=== PATIENT | male | born 1995 | race Caucasian/White ===

== ENCOUNTER 2020-11-06 19:02 | Emergency (ER) | payer SELFPAY ==
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
[2020-11-06 19:07] VITALS: BP 158/80; PULSE 58; RESP 16; TEMP 36.9; O2SAT 98; BMI 25.1
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
[2020-11-06 22:43] VITALS: BP 116/75; PULSE 55; RESP 17; O2SAT 97
[2020-11-06] MEDS: Diphth,Pertus(ACell),Tet Adult 0.5 ML SYRINGE IM (22:48)
== END 2020-11-06 23:29 | disposition home or self-care (01) ==
PROVIDERS: Emergency Provider Emergency Medicine; PCP Internal Medicine
DX: S06.0X0A Concussion without loss of consciousness, initial encounter (principal); S00.511A Abrasion of lip, initial encounter; Y04.2XXA Assault by strike against or bumped into by another person, initial encounter; Y93.9 Activity, unspecified; Y92.9 Unspecified place or not applicable; Y99.9 Unspecified external cause status
CPT/HCPCS: 70450; 70486; 90471; 90715; 99284

== ENCOUNTER → 2024-01-13 10:17 | Outpatient (BNVA) | payer OTHER, SELFPAY | PROVIDERS: PCP Internal Medicine; Visit Provider Physician Assistant Medical | DX: S61.411A Laceration without foreign body of right hand, initial encounter (principal); W45.8XXA Other foreign body or object entering through skin, initial encounter | CPT/HCPCS: 12001; 99203 ==

== ENCOUNTER → 2024-01-15 08:50 | Outpatient (BNVA) | payer OTHER, SELFPAY | PROVIDERS: PCP Internal Medicine; Visit Provider Physician Assistant Medical | DX: S61.411A Laceration without foreign body of right hand, initial encounter (principal); W45.8XXA Other foreign body or object entering through skin, initial encounter | CPT/HCPCS: 99213 ==

== ENCOUNTER → 2024-01-21 09:58 | Outpatient (BNVA) | payer OTHER, SELFPAY | PROVIDERS: PCP Internal Medicine; Visit Provider Physician Assistant Medical | DX: Z48.02 Encounter for removal of sutures (principal); S61.411D Laceration without foreign body of right hand, subsequent encounter; W45.8XXD Other foreign body or object entering through skin, subsequent encounter | CPT/HCPCS: 99212; 99213 ==